=== PATIENT | male | born 1975 | race Caucasian/White ===

== ENCOUNTER 2019-02-13 12:23 | Emergency (ER) | payer SELFPAY ==
[~2019-02-13] VITALS: Ht 170.2 cm; Wt 68.0 kg
[2019-02-13] MEDS ORDERED: NKM (12:38)
[2019-02-13 13:00] VITALS: BP 151/93
--- NOTE | 2019-02-13 14:09 | NUR ---
ED Nurse Note: pt with xrasy being doen. pt amb steady gait. NAD. no dyspnea noted
--- NOTE | 2019-02-13 14:14 | Diagnostic Imaging Report ---
Indication: Head trauma headache Technique: Contiguous 5 mm thick transaxial imaging of the head obtained in a Siemens Sensation [address] scanner. Soft tissue and bone windows generated. Automatic Exposure Control was utilized. Total Dose length Product (DLP): 1632.[address] Dose Index Volume (CTDIvol): 70.38,14.47 mGy Comparison: none Findings: The size and configuration of the cortical sulci, basal cisterns, and ventricles are within normal limits for age. There is no mass effect, midline shift, or edema identified. There is no evidence of acute hemorrhage or abnormal intra-axial or extra-axial fluid collections. The bones and soft tissues are unremarkable. There is mild mucosal thickening within the paranasal sinuses. Impression: No mass effect, edema or acute bleed. Sinusitis The CT scanner at [facility] is accredited by the [employer] and the scans are performed using dose optimization techniques as appropriate to a performed exam including Automatic Exposure control.
--- NOTE | 2019-02-13 14:19 | Diagnostic Imaging Report ---
Indication: Neck pain. Technique: Continuous helical imaging of the cervical spine was obtained transaxially from the skull base to the upper thoracic spine. 2-D coronal and sagittal reformatted images were obtained. Automatic Exposure Control was utilized. Total Dose length Product (DLP): 1632.[address] Dose Index Volume (CTDIvol): 70.38,14.47 mGy Comparison: None Findings: There is no acute fracture or malalignment identified. There is no soft tissue swelling identified. 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 Some of the intervertebral discs show mild narrowing. Impression: No acute injury Mild spondylosis The CT scanner at [facility] is accredited by the [employer] and the scans are performed using dose optimization techniques as appropriate to a performed exam including Automatic Exposure control.
--- NOTE | 2019-02-13 14:25 | NUR ---
ED Nurse Note: returned from xray dept. no new s/s.
--- NOTE | 2019-02-13 14:34 | Diagnostic Imaging Report ---
Indication: Left knee pain 2 views of the left knee were obtained. Findings: No acute fracture, malalignment, or joint effusion are identified. Joint space is relatively well-maintained. Bone mineralization is within normal limits for age. Impression: Negative exam
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
[2019-02-13] MEDS ORDERED: ROBAXIN500 MG PO (14:42)
[2019-02-13] MEDS ORDERED: NAPROXEN500 M2 ORAL (14:42)
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
--- NOTE | 2019-02-13 14:52 | NUR ---
ER DISCHARGE NOTE: Patient is cleared to be discharged per ERMD, pt is aox4, on room air, with stable vital signs. pt was given dc and prescription instructions, pt was able to verbalize understanding, pt id band removed without complications. pt is able to ambulate with steady gait. pt took all belongings.
[2019-02-13 14:53] VITALS: BP 151/93
[2019-02-13] MEDS ORDERED: HYDROcodone/Acetamin 5/325 tab ORAL ONE (15:00)
== END 2019-02-13 14:56 | disposition home or self-care (01) ==
LOC: EMR 12:53
DX: S00.93XA Contusion of unspecified part of head, initial encounter (principal); S10.93XA Contusion of unspecified part of neck, initial encounter; S20.219A Contusion of unspecified front wall of thorax, initial encounter; V23.4XXA Motorcycle driver injured in collision with car, pick-up truck or van in traffic accident, initial encounter; Y92.410 Unspecified street and highway as the place of occurrence of the external cause; J32.9 Chronic sinusitis, unspecified; M47.812 Spondylosis without myelopathy or radiculopathy, cervical region
CPT/HCPCS: 70450; 71111; 72125; 96372; 99284